=== PATIENT | female | born 1955 | race Caucasian/White ===

== ENCOUNTER 2017-11-25 16:57 | Emergency (ER) | payer OTHER ==
[2017-11-25] MEDS ORDERED: LIDOCAINE 1%/EPI 30 ML INJ INJ (19:08)
[2017-11-25] MEDS ORDERED: HYDROCODONE/APAP (5/325) TAB PO (19:30)
[2017-11-25] MEDS ORDERED: DIPHTH/TET/ACEL PERTUSS (ADULT) 0.5 ML VIAL IM* (19:30)
[2017-11-25] MEDS: KETOROLAC 60 MG INJ IM (19:38)
== END 2017-11-25 19:51 | disposition home or self-care (01) ==
LOC: FTE 16:57
DX: M54.2 Cervicalgia (principal); M54.5 Low back pain
CPT/HCPCS: 96372; 99284-25

== ENCOUNTER 2018-08-12 11:58 | Emergency (ER) | payer OTHER ==
[2018-08-12] MEDS: LORAZEPAM 0.5 MG TAB PO (13:57)
[2018-08-12] MEDS: KETOROLAC 15 MG INJ IM (13:58)
== END 2018-08-12 14:54 | disposition home or self-care (01) ==
LOC: FTE 11:58
DX: M54.9 Dorsalgia, unspecified (principal); R07.9 Chest pain, unspecified
CPT/HCPCS: 93005; 96372; 99284-25

== ENCOUNTER 2018-11-11 21:11 | Emergency (ER) | payer OTHER ==
[2018-11-11] MEDS: IBUPROFEN 800 MG TAB PO (22:19)
== END 2018-11-12 00:13 | disposition home or self-care (01) ==
LOC: FTE 11-12 00:13
DX: S89.92XA Unspecified injury of left lower leg, initial encounter (principal); S99.912A Unspecified injury of left ankle, initial encounter; W18.30XA Fall on same level, unspecified, initial encounter; Y92.9 Unspecified place or not applicable
CPT/HCPCS: 73562; 73590; 73610; 99283-25